=== PATIENT | male | born 1995 | race Two or more races ===

== ENCOUNTER 2017-04-24 22:04 | Emergency (ER) | payer SELFPAY ==
[~2017-04-24] VITALS: Ht 160 cm; Wt 90.7 kg
[2017-04-24 22:31] VITALS: BP 120/68
== END 2017-04-25 04:55 | disposition left against medical advice (07) ==
LOC: ER 22:04 → EDBD 22:04 → ER 04-25 04:55
DX: F10.120 Alcohol abuse with intoxication, uncomplicated (principal); Z53.21 Procedure and treatment not carried out due to patient leaving prior to being seen by health care provider